=== PATIENT | female | born 1965 | race Caucasian/White ===

== ENCOUNTER 2017-01-18 13:57 | Day surgery (SDC) | payer OTHER ==
[~2017-01-18] VITALS: Ht 177.8 cm; Wt 85.0 kg
[~2017-01-18 13:57] MED LIST: LIPITOR10 MG PO; NEXIUM40 MG PO; OTEZLA30 MG PO; PROZAC40 MG PO
[2017-01-23] MEDS ORDERED: MAGNESIUM400 M1 PO (08:39)
[2017-01-23] MEDS ORDERED: VOL-CARE RX TA1 EACH PO (08:40)
[2017-01-23] MEDS ORDERED: CO Q-10 100 MG1 EACH PO (08:40)
[2017-01-23] MEDS ORDERED: VITAMIN D400 UNI1 PO (08:40)
== END 2017-01-18 16:56 | disposition home or self-care (01) ==
LOC: CATH 13:57
DX: I87.8 Other specified disorders of veins (principal); C20 Malignant neoplasm of rectum; Z79.82 Long term (current) use of aspirin; Z87.11 Personal history of peptic ulcer disease; Z82.49 Family history of ischemic heart disease and other diseases of the circulatory system; Z83.3 Family history of diabetes mellitus; Z87.891 Personal history of nicotine dependence
CPT/HCPCS: C1751; C1894; J0690; J1644; J2250; J3010; S0020